=== PATIENT | female | born 1935 ===

== ENCOUNTER 2022-09-26 10:48 | Outpatient (OUT) | payer MEDICARE, SELFPAY ==
--- NOTE | 2022-09-26 | XR_ITS ---
The [address] [address] Patient Name: JOÃO PIZARRO MRN: [id number] date: 1935 Sex: F Assigned Patient Location: [facility] Current Patient Location: Accession/Order Number: [id number] Exam Date: 09/26/2022 11:29 Report Date: 09/27/2022 00:47 At the request of: MAE HARVEY Procedure: XR foot LT min 3V EXAM: XR foot LT min 3V HISTORY: LEFT FOOT PAIN COMPARISON: None. TECHNIQUE: 3 view study FINDINGS: Overall bony architecture is normal. There is a hallux valgus deformity with hypertrophy of the distal medial first metatarsal and mild narrowing at the first MP joint with early lateral osteophytosis. The interphalangeal joints also are narrowed, most marked at the third DIP joint. A small posterior calcaneal enthesophyte is noted. Pes planus deformity is noted. Soft tissues are unremarkable. XR/XR foot LT min 3V IMPRESSION: Hallux valgus deformity with early degenerative changes at the first MP joint. Degenerative changes at the interphalangeal joints. Early calcaneal enthesophyte. Electronically authenticated by: Nieves RONDON Date: 09/27/2022 00:47
== END 2022-09-26 10:49 | disposition home or self-care (01) ==
LOC: RAD 10:49
PROVIDERS: Visit Provider Physician Assistant
DX: M79.672 Pain in left foot (principal)
CPT/HCPCS: 73630